=== PATIENT | male | born 1970 | race Caucasian/White ===

== ENCOUNTER → 2016-07-30 | Outpatient (CLI) | payer BC ==
[~2016-07-30] MED LIST: CALC500C3 PO; CARV3.122 PO; GADAVIST IV PRN; HYDR25TA4 PO; LEVO75TA5 PO; LISI-794 PO; OXYC1TAB3 PO; OXYSR/20 PO; POLY335019 PO; ZANTAC PO
--- NOTE | 2016-07-30 08:54 | DIAGNOSTIC IMAGING REPORT ---
MRI OF THE BRAIN WITHOUT AND WITH IV CONTRAST CLINICAL HISTORY: Facial droop COMPARISON STUDY: 01/05/2014 TECHNIQUE: MRI of the brain was performed from the vertex to the skull base utilizing various T1 and T2 weighted sequences. Following the IV administration of 13.5 mL of Gadavist contrast, additional enhanced images were obtained. The patient was imaged under 0.7 Aubree open MRI scanner. FINDINGS: Sagittal T1, axial diffusion, proton density and T2 weighted axial, coronal FLAIR, and pre and post axial T1-weighted images were acquired. These were supplemented with post gadolinium coronal T1 weighted images. There is a focus of decreased T1 signal within the inferior aspect of the pituitary on the sagittal T1 weighted images. No corresponding lesion is visualized in the post gadolinium coronal T1 weighted sequence. There is no abnormality in the prior study this location. This may be artifactual. There is ossification of the falx. There is equivocal 7 mm pineal cyst. This remains unchanged in appearance. Axial diffusion-weighted images reveal no evidence of acute or subacute infarction. There is no evidence of ventricular dilatation. Proton density T2-weighted and FLAIR images reveal no significant intraparenchymal signal abnormalities. There are no abnormal flow voids. There is no evidence of pathologic enhancement. IMPRESSION: 1. No evidence of acute or subacute infarction 2. Equivocal 7 mm pineal cyst. No change from the preceding study 3. Focus of decreased T1 signal within the inferior aspect the pituitary gland visualized on the sagittal T1-weighted images. This is likely artifactual. Electronically signed by: Rolando Joseph M.D. 07/30/2016 8:52 AM
== END | disposition home or self-care (01) ==
LOC: C.OPENMRI 07:50
PROVIDERS: ATTEND Family Medicine
DX: R29.810 Facial weakness (principal); G93.0 Cerebral cysts

== ENCOUNTER → 2016-08-01 | Outpatient (CLI) | payer BC ==
[~2016-08-01] MED LIST changes: -GADAVIST IV PRN
[2016-08-01 17:47] LABS: LYME DISEASE AB IGG NEG (NEG); LYME DISEASE AB IGM POS (NEG)
[2016-08-05 11:17] LABS: 18KDIGG BAND NONREACTIVE (NONREACTIVE); 23KDIGG BAND NONREACTIVE (NONREACTIVE); 23KDIGM BAND REACTIVE (NONREACTIVE); 28KDIGG BAND NONREACTIVE (NONREACTIVE); 30KDIGG BAND NONREACTIVE (NONREACTIVE); 39KDIGG BAND NONREACTIVE (NONREACTIVE); 39KDIGM BAND NONREACTIVE (NONREACTIVE); 41KDIGG BAND NONREACTIVE (NONREACTIVE); 41KDIGM BAND NONREACTIVE (NONREACTIVE); 45KDIGG BAND NONREACTIVE (NONREACTIVE); 58KDIGG BAND REACTIVE (NONREACTIVE); 66KDIGG BAND NONREACTIVE (NONREACTIVE); 93KDIGG BAND NONREACTIVE (NONREACTIVE)
== END | disposition home or self-care (01) ==
LOC: C.LAB1850 15:16
PROVIDERS: ATTEND Family Medicine
DX: A69.20 Lyme disease, unspecified (principal)

== ENCOUNTER → 2016-09-09 | Outpatient (CLI) | payer BC ==
--- NOTE | 2016-09-09 15:36 | DIAGNOSTIC IMAGING REPORT ---
CHEST 2 VIEWS ROUTINE HISTORY: COUGH, FEVER COMPARISON: Chest 04/09/2016. FINDINGS: The lungs are clear. Cardiac silhouette is normal in size. No pleural effusions. No pneumothorax. IMPRESSION: No acute process. Electronically signed by: Brandon Cruz M.D. 09/09/2016 3:35 PM Dictated Date/Time: 09/09/2016 3:33 PM
== END | disposition home or self-care (01) ==
LOC: C.RADBC 14:57
PROVIDERS: ATTEND Family Medicine
DX: R05 Cough (principal); R50.9 Fever, unspecified

== ENCOUNTER → 2016-10-10 | Outpatient (CLI) | payer BC ==
[~2016-10-10] VITALS: Ht 177.8 cm; Wt 134.1 kg
[2016-10-10 14:28] VITALS: BP_SYST 141; BP_SYST 147; BP_DIAS 101; BP_DIAS 88; PULSE 125; PULSE 128; Ht 177.8 cm; Wt 134.1 kg
== END | disposition home or self-care (01) ==
LOC: C.NEUR 12:41
PROVIDERS: ATTEND Internal Medicine Pulmonary Disease
DX: G47.30 Sleep apnea, unspecified (principal)

== ENCOUNTER → 2017-05-11 | Outpatient (CLI) | payer BC ==
[~2017-05-11] MED LIST changes: -OXYC1TAB3 PO
[2017-05-11 13:31] LABS: ESTIMATED AVERAGE GLUCOSE 128 mg/dl; HA1C FLAG Normal (Normal)
[2017-05-11 15:57] LABS: ALT/SGPT 110 U/L (12-78); BLOOD UREA NITROGEN 16 mg/dl (7-18); BUN/CREATININE RATIO 13.8 (10-20); CALCIUM 8.9 mg/dl (8.5-10.1); CARBON DIOXIDE 30 mmol/L (21-32); CHLORIDE 104 mmol/L (98-107); CHOLESTEROL 174 mg/dl (0-200); CREATININE 1.14 mg/dl (0.60-1.40); GLUCOSE 115 mg/dl (70-99); POTASSIUM 3.7 mmol/L (3.5-5.1); SODIUM 141 mmol/L (136-145)
[2017-05-11 16:09] LABS: ALKALINE PHOSPHATASE 92 U/L (45-117); AST/SGOT 34 U/L (15-37); CHOLESTEROL/HDL RATIO 6.2; HDL CHOLESTEROL 28 mg/dl; LDL CHOLESTEROL CALCULATED 114 mg/dl; TRIGLYCERIDES 160 mg/dl (0-150); VERY LOW DENSITY LIPOPROT CALC 32 mg/dl
== END | disposition home or self-care (01) ==
LOC: C.LABPBG 09:07
PROVIDERS: ATTEND Family Medicine
DX: I10 Essential (primary) hypertension (principal); E78.5 Hyperlipidemia, unspecified; E03.9 Hypothyroidism, unspecified; R73.9 Hyperglycemia, unspecified

== ENCOUNTER → 2017-10-09 | Outpatient (CLI) | payer OTHER ==
[~2017-10-09] VITALS: Ht 177.8 cm; Wt 319.3 kg
[2017-10-09 13:38] VITALS: BP 155/101; PULSE 99; Ht 177.8 cm; Wt 319.3 kg
== END | disposition home or self-care (01) ==
LOC: C.NEUR 12:37
PROVIDERS: ATTEND Internal Medicine Pulmonary Disease
DX: G47.34 Idiopathic sleep related nonobstructive alveolar hypoventilation (principal); E66.9 Obesity, unspecified; G47.00 Insomnia, unspecified

== ENCOUNTER → 2017-10-26 | Outpatient (CLI) | payer OTHER ==
[2017-10-26 13:12] LABS: HEMATOCRIT 44.8 % (42-52); HEMOGLOBIN 15.8 g/dL (14.0-18.0); MEAN CELL VOLUME 81.5 fL (80-100); MEAN CORPUSCULAR HEMOGLOBIN 28.7 pg (25-34); MEAN CORPUSCULAR HGB CONC 35.3 g/dl (32-36); MEAN PLATELET VOLUME 10.4 fL (7.4-10.4); PLATELET COUNT 204 K/uL (130-400); RED CELL DISTRIBUTION WIDTH SD 38.6 fL (36.4-46.3); WHITE BLOOD COUNT 8.56 K/uL (4.8-10.8)
[2017-10-26 14:12] LABS: HEMOGLOBIN A1C 9.3 % (4.5-5.6)
[2017-10-26 14:26] LABS: ALBUMIN 4.1 gm/dl (3.4-5.0); ALT/SGPT 205 U/L (12-78); AST/SGOT 85 U/L (15-37); BLOOD UREA NITROGEN 11 mg/dl (7-18); CALCIUM 9.2 mg/dl (8.5-10.1); CARBON DIOXIDE 27 mmol/L (21-32); CHOLESTEROL 199 mg/dl (0-200); CREATININE 1.07 mg/dl (0.60-1.40); GLUCOSE 281 mg/dl (70-99); POTASSIUM 3.5 mmol/L (3.5-5.1); SODIUM 137 mmol/L (136-145)
[2017-10-26 14:37] LABS: ALKALINE PHOSPHATASE 134 U/L (45-117); LDL CHOLESTEROL CALCULATED 136 mg/dl; TOTAL PROTEIN 7.7 gm/dl (6.4-8.2)
== END | disposition home or self-care (01) ==
LOC: C.LABPBG 09:27
PROVIDERS: ATTEND Family Medicine
DX: I10 Essential (primary) hypertension (principal); R73.03 Prediabetes; M54.5 Low back pain; E78.5 Hyperlipidemia, unspecified; E03.9 Hypothyroidism, unspecified

== ENCOUNTER 2021-02-14 16:57 | Observation (INO) ==
[2021-02-14] MEDS ORDERED: ONDANSETRON INJ 2 MG/ML 2 ML VIAL IV STA (17:41)
[2021-02-14] MEDS ORDERED: SODIUM CHLORIDE 0.9% 500 ML IV STA (17:41)
[2021-02-14] MEDS ORDERED: FAMOTIDINE 20 MG in SYRINGE 3 ML IV STA (17:42)
[2021-02-14] MEDS ORDERED: FAMOTIDINE 20MG/5ML IV PUSH IV ONE (17:46)
--- NOTE | 2021-02-14 17:51 | Emergency Department Note ---
Impression & Plan COVID-19, Gastroenteritis due to COVID-19 virus, Acute renal insufficiency ED Provider Note NAME: ROBIN ARCHER II AGE: 50 SEX: M ARRIVES VIA: Walk-In INFORMANT: Patient, ED PROVIDER(S): Aravind Martin MD CHIEF COMPLAINT: n/v/d PLAN: Disposition: Admit MEDICAL DECISION MAKING: The patient is a pleasant 50-year-old gentleman with a past medical history of pretension, hyperlipidemia, diabetes, hypothyroidism who presents emerge department accompanied by his for 2 days of worsening nausea vomiting and persistent diarrhea with frequent bowel movements that he feels are too numerous to count. The stool is watery brown and denies black or bloody stool. He reports he recently returned from [place] on Thursday and preceding his symptoms he ate half a owen that he had brought back. His and daughter also ate the mangoes but slightly less than he did but they have no symptoms. He denies fevers, cough or congestion, chest pain or shortness of breath. He reports he has been unable to keep any food or drink down since yesterday. He reports he did receive his COVID-19 vaccination two dose Moderna series in September and denies any known COVID-19 exposures. On arrival the patient is uncomfortable no acute distress, afebrile heart rate in the 110s vital signs otherwise stable. He appears clinically dry. He has generalized abdominal discomfort with mild tenderness in the left lower quadrant without guarding or rebound. EKG without overt acute ischemia. Chest x-ray without acute cardiopulmonary process. WBC 11.3K, nonspecific. H/H 18.3/52.5 likely with a component of hemoconcentration given the patient's clinically dry appearance and increased values from several months ago. Platelets within normal limits. Chemistry without significant acidosis but with bicarb 19 and creatinine 1.9 with BUN/creatinine> 20 consistent with dehydration and likely prerenal etiology in the setting of his nausea, vomiting and diarrhea. LFTs without significant abnormality. Troponin negative/undetectable. Lipase is not elevated. The patient's COVID-19 PCR did result as positive. Given the patient's renal failu re and abdominal tenderness he was ordered for a CT scan of the abdomen pelvis was negative for acute findings. On reevaluation patient was feeling somewhat improved however given his acute renal insufficiency in the setting of his ongoing GI symptoms/gastroenteritis secondary to COVID-19 he agrees with plan for admission. Dr. Marroquin, [facility] hospitalist, to evaluate the patient for admission. This patient was managed with the assistance of resident, Dr. Comer. I discussed the case with the resident, examined the patient, and confirm the findings and plan as documented in this note. Triage Nursing notes reviewed and agree them. Prior medical records reviewed Vital Signs: reviewed and remarkable for tachycardia. Differential diagnosis: Gastroenteritis, food borne illness, infections, appendicitis, diverticulitis, inflammatory bowel disease, obstruction, GI bleed, biliary pathology, volvulus, as well as other pathologies. ER treatment provided: See below. Diagnostics interpreted by me: ECG: Normal sinus rhythm, 97 bpm, no ectopy, no overt ST elevation or depression, QTC 424, QRS 88. Cardiac Monitoring: An order for continuous cardiac monitoring was placed and demonstrated Normal sinus rhythm, 97 bpm, no ectopy. Laboratory studies: See below Imaging studies: See below Consultation(s): Dr. Marroquin, [facility] hospitalist, to evaluate the patient for admission. HPI: The patient is a pleasant 50-year-old gentleman with a past medical history of pretension, hyperlipidemia, diabetes, hypothyroidism who presents emerge department accompanied by his for 2 days of worsening nausea vomiting and persistent diarrhea with frequent bowel movements that he feels are too numerous to count. The stool is watery brown and denies black or bloody stool. He reports he recently returned from [place] on Thursday and preceding his symptoms he ate half a owen that he had brought back. His and daughter also ate the mangoes but slightly less than he did but they have no symptoms. He denies fevers, cough or congestion, chest pain or shortness of breath. He reports he has been unable to keep any food or drink down since yesterday. He reports he did receive his COVID-19 vaccination two dose Moderna series in September and denies any known COVID-19 exposures. ROS: See above HPI for pertinent positives & negatives. A total of 10 systems reviewed and were otherwise negative. PAST MEDICAL HISTORY:See Below PAST SURGICAL HISTORY:See Below FAMILY HISTORY:See Below SOCIAL HISTORY:See Below HOME MEDICATIONS:See Below ALLERGIES:See Below VITALS:See Below PHYSICAL EXAMINATION: GENERAL: Awake, alert, uncomfortable-appearing, in no distress HENT: Normocephalic, atraumatic. Oropharynx with dry mucous membranes and otherwise unremarkable. EYES: Normal conjunctiva. Sclera non-icteric. NECK: Supple. No nuchal rigidity. FROM. No JVD. RESPIRATORY: Clear to auscultation. CARDIAC: Tachycardic rate, normal rhythm. Extremities warm and well perfused. Pulses equal. ABDOMEN: Soft, non-distended. Generalized abdominal discomfort with mild tenderness in the left lower quadrant without guarding or rebound. No rebound or guarding. No masses. RECTAL: Deferred. MUSCULOSKELETAL: Chest examination reveals no tenderness. The back is symmetrical on inspection without obvious abnormality. There is no CVA tenderness to palpation. No joint edema. LOWER EXTREMITIES: Calves are equal size bilaterally and non-tender. No edema. No discoloration. NEURO: Normal sensorium. No sensory or motor deficits noted. SKIN: No rash or jaundice noted. Aravind Martin MD Past Med/Surg History Medical History Disc degeneration, lumbar Dyslipidemia Esophageal reflux Facet syndrome, lumbar Fatty infiltration of liver Gout Hypertension Hypothyroidism Internal hemorrhoids Morbid obesity with BMI of 40.0-44.9, adult Obstructive sleep apnea cpap 5-20cm H20 Post laminectomy syndrome Prostate hyperplasia with urinary obstruction Restless legs syndrome Sleep related hypoxia T2DM (type 2 diabetes mellitus) Unequal leg length (acquired) Surgical History H/O colonoscopy (06/01/15) hemorrhoids, repeat 5yrs H/O vasectomy History of ankle surgery right History of arthroscopy of left knee History of arthroscopy of right knee History of wisdom tooth extraction S/P lumbar spinal arthrodesis (03/2014) L4-S1 fusion Status post appendectomy Status post left foot surgery hardware in place Family History Grandfather (Paternal) Bladder cancer Mother Arthritis Grandfather (Maternal) Cardiac disorder Grandmother (Paternal) Lung cancer Father Colorectal cancer, Onset Age: 49 Other No family history of adverse response to anesthesia Denies family history of Ovarian cancer Prostate cancer Myocardial infarction Breast cancer Social History Smoking Status: Never smoker Second Hand Exposure: No; Hx Alcohol Use: No Hx Substance Use: No Preferred Language: British Communication Ability: Effective Visual Impairment: No Limitations Hearing Ability: Normal Interventional Technologist Required: No Beliefs That Will Affect Care: None marital status: Current Living Situation: Spouse and Family Current Living Situation Comment: Lives with and 2 daughters current occupational status: employed 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 Other Information That Helps Us Care for You: No Feels Safe at Home: Yes Safety Concerns: Feels Safe At This Time Childhood Exposure to Second-Hand Smoke: No Diet Comment: regular caffeine: Yes (coffee) during the past year weight has: decreased > 10 lbs Dental Care, Regularly: Yes Physical Activity Frequency: Does not Exercise Seatbelt Use: always Sunscreen Use: No Assistive Devices: Glasses Allergies Allergies Allergy/AdvReac Type Severity Reaction Status Date / Time LINUS Inhibitors Allergy Unknown Unknown Verified 02/14/21 21:17 Penicillins Allergy Unknown UNKNOWN Verified 02/14/21 21:17 Home Meds Home Medications Medication Instructions Recorded Confirmed empagliflozin 25 mg tablet 25 mg PO QAM 12/11/20 02/14/21 (Jardiance) meloxicam 15 mg tablet 15 mg PO QAM PRN 02/14/21 02/14/21 Previous Rx's Medication Instructions Recorded levothyroxine 75 mcg tablet 75 mcg PO QAM #90 tab 10/10/20 amlodipine 5 mg tablet 5 mg PO QAM #90 tab 11/06/20 carvedilol 25 mg tablet 25 mg PO BID #180 tab 12/05/20 potassium chloride 20 mEq 20 meq PO QAM #180 tab 12/05/20 tablet,extended release doxepin 50 mg capsule 150 mg PO HS #90 cap 01/01/21 hydrochlorothiazide 25 mg tablet 25 mg PO QAM #90 tab 01/01/21 lisinopril 40 mg tablet 40 mg PO QAM #90 tab 01/01/21 metformin 1,000 mg tablet 1,000 mg PO BID #180 tab 01/01/21 atorvastatin 20 mg tablet 20 mg PO QAM #90 tab 02/01/21 Results & Data (ED) Vital Signs Vital Signs - 24 hr 02/14/21 17:13 02/14/21 18:26 02/14/21 19:54 Temperature 36.6 C Temperature Source Temporal Artery Scan Pulse Rate 116 H 95 H 102 H Pulse Rate from SpO2 Sensor 96 H Respiratory Rate 18 21 17 Respiratory Effort / Characteristics Non-Labored Spontaneous Respiratory Depth Normal Blood Pressure 108/69 126/80 111/60 Blood Pressure Mean 82 95 77 Blood Pressure Position Sitting Pulse Oximetry 97 96 96 Oxygen Delivery Method Room Air Sepsis Recent Fever Within 48 Hours No Sepsis New/Unexplained Change in Mental Status No Sepsis Action Taken by Nursing No Action Required 02/14/21 20:00 02/14/21 20:31 02/14/21 21:01 Temperature Temperature Source Pulse Rate 101 H 99 H 95 H Pulse Rate from SpO2 Sensor Respiratory Rate 16 14 18 Respiratory Effort / Characteristics Respiratory Depth Blood Pressure 104/62 116/62 127/68 Blood Pressure Mean 76 80 87 Blood Pressure Position Pulse Oximetry 94 100 Oxygen Delivery Method Sepsis Recent Fever Within 48 Hours Sepsis New/Unexplained Change in Mental Status Sepsis Action Taken by Nursing 02/14/21 22:20 02/14/21 22:30 Temperature Temperature Source Pulse Rate 109 H 108 H Pulse Rate from SpO2 Sensor Respiratory Rate 20 Respiratory Effort / Characteristics Respiratory Depth Blood Pressure 100/74 126/81 Blood Pressure Mean 82 96 Blood Pressure Position Pulse Oximetry 96 94 Oxygen Delivery Method Room Air Room Air Sepsis Recent Fever Within 48 Hours Sepsis New/Unexplained Change in Mental Status Sepsis Action Taken by Nursing Laboratory Data Attestation: I reviewed the patient's lab results. Result diagrams: 02/14/21 18:10 02/14/21 18:10 Lab Results 02/14/21 02/14/21 02/14/21 Range/Units 18:10 18:10 18:10 WBC 11.39 H (4.8-10.8) K/uL RBC 6.43 H (4.7-6.1) M/uL Hgb 18.3 H (14.0-18.0) g/dL Hct 52.5 H (42-52) % MCV 81.6 (80-100) fL MCH 28.5 (25-34) pg MCHC 34.9 (32-36) g/dL RDW Std Deviation 39.2 (36.4-46.3) fL RDW Coeff of [place] 13.2 (11.5-14.5) % Plt Count 237 (130-400) K/uL MPV 9.9 (7.4-10.4) fL Immature Gran % (Auto) 0.4 % Neut % (Auto) 61.7 % Lymph % (Auto) 18.3 % [place] % (Auto) 16.6 % Eos % (Auto) 2.9 % Baso % (Auto) 0.1 % Neut # (Auto) 7.04 H (1.4-6.5) K/uL Lymph # (Auto) 2.08 (1.2-3.4) K/uL [place] # (Auto) 1.89 H (0.11-0.59) K/uL Eos # (Auto) 0.33 (0-0.5) K/uL Baso # (Auto) 0.01 (0-0.2) K/uL Immature Gran # (Auto) 0.04 H (0.00-0.02) K/uL Sodium 137 (136-145) mmol/L Potassium 3.9 (3.5-5.1) mmol/L Chloride 111 H (98-107) mmol/L Carbon Dioxide 19 L (21-32) mmol/L Anion Gap 7.0 (3-11) BUN 40 H (7-18) mg/dl Creatinine 1.94 H (0.6-1.4) mg/dl Est Cr Clr Drug Dosing 62.3 ml/min Est GFR ( Amer) 46.1 ml/min Est GFR (Non-Af Amer) 39.8 ml/min BUN/Creatinine Ratio 20.5 H (10-20) Glucose 123 H (70-99) mg/dl Lactate 1.2 (0.4-2.0) mmol/L Calcium 9.4 (8.5-10.1) mg/dl Total Bilirubin 0.8 (0.2-1) mg/dl AST 10 L (15-37) U/L ALT 34 (12-78) U/L Alkaline Phosphatase 83 (45-117) U/L Troponin I < 0.015 (0-0.045) ng/ml Total Protein 7.9 (6.4-8.2) gm/dl Albumin 4.2 (3.4-5.0) gm/dl Globulin 3.7 (2.5-4.0) gm/dl Albumin/Globulin Ratio 1.1 (0.9-2) Lipase 146 (73-393) U/L COVID-19 Eval Order SARS-CoV-2 (PCR) (Negative) 02/14/21 02/14/21 Range/Units 18:10 18:10 WBC (4.8-10.8) K/uL RBC (4.7-6.1) M/uL Hgb (14.0-18.0) g/dL Hct (42-52) % MCV (80-100) fL MCH (25-34) pg MCHC (32-36) g/dL RDW Std Deviation (36.4-46.3) fL RDW Coeff of [place]ian[place] (11.5-14.5) % Plt Count (130-400) K/uL MPV (7.4-10.4) fL Immature Gran % (Auto) % Neut % (Auto) % Lymph % (Auto) % [place] % (Auto) % Eos % (Auto) % Baso % (Auto) % Neut # (Auto) (1.4-6.5) K/uL Lymph # (Auto) (1.2-3.4) K/uL [place] # (Auto) (0.11-0.59) K/uL Eos # (Auto) (0-0.5) K/uL Baso # (Auto) (0-0.2) K/uL Immature Gran # (Auto) (0.00-0.02) K/uL Sodium (136-145) mmol/L Potassium (3.5-5.1) mmol/L Chloride (98-107) mmol/L Carbon Dioxide (21-32) mmol/L Anion Gap (3-11) BUN (7-18) mg/dl Creatinine (0.6-1.4) mg/dl Est Cr Clr Drug Dosing ml/min Est GFR ( Amer) ml/min Est GFR (Non-Af Amer) ml/min BUN/Creatinine Ratio (10-20) Glucose (70-99) mg/dl Lactate (0.4-2.0) mmol/L Calcium (8.5-10.1) mg/dl Total Bilirubin (0.2-1) mg/dl AST (15-37) U/L ALT (12-78) U/L Alkaline Phosphatase (45-117) U/L Troponin I (0-0.045) ng/ml Total Protein (6.4-8.2) gm/dl Albumin (3.4-5.0) gm/dl Globulin (2.5-4.0) gm/dl Albumin/Globulin Ratio (0.9-2) Lipase (73-393) U/L COVID-19 Eval Order Covid19 at [facility] SARS-CoV-2 (PCR) POSITIVE A* (Negative) Administered Medications Lactated Ringer's (Lr) 1,000 mls @ 125 mls/hr IV .Q8H OWEN Stop: 02/15/21 14:29 Last Infusion: 02/14/21 23:24 Dose: 125 mls/hr Documented by: [id number] Admin: 02/14/21 23:20 Dose: 125 mls/hr Documented by: [id number] Discontinued Medications Famotidine (Famotidine 20mg/5ml Iv Push) Confirm Administered Dose 20 mg IV .STK-MED ONE Stop: 02/14/21 17:47 Last Admin: 02/14/21 18:07 Dose: 20 mg Documented by: [id number] Sodium Chloride (Nss) 500 mls @ 999 mls/hr IV .Q31M STA Stop: 02/14/21 18:11 Last Infusion: 02/14/21 18:47 Dose: 0 mls/hr Documented by: [id number] Admin: 02/14/21 18:07 Dose: 999 mls/hr Documented by: [id number] Famotidine 20 mg/ Syringe 5 mls @ 2.5 mls/min IV NOW STA Stop: 02/14/21 17:43 Last Admin: 02/14/21 18:34 Dose: Not Given Documented by: [id number] Sodium Chloride (Nss) 500 mls @ 999 mls/hr IV .Q31M ONE Stop: 02/14/21 19:28 Last Infusion: 02/14/21 20:32 Dose: 0 mls/hr Documented by: [id number] Admin: 02/14/21 19:56 Dose: 999 mls/hr Documented by: [id number] Ondansetron HCl (Ondansetron Inj 2 Mg/Ml 2 Ml Vial) 4 mg IV NOW STA Stop: 02/14/21 17:42 Last Admin: 02/14/21 18:07 Dose: 4 mg Documented by: [id number] Imaging Data Radiologist's Impression: KUB X-Ray 02/14/21 17:41 KUB CLINICAL HISTORY: Generalized abdominal pain. Nausea and vomiting. FINDINGS: 4 AP supine abdominal radiographs are correlated with abdominal CT dated 11/28/2015. There is a nonobstructed abdominal bowel gas pattern. No evidence of intraperitoneal free air is seen on these supine images. The liver is enlarged. A 10 mm calcification projecting over the left midabdomen may represent a nonobstructing kidney stone. The bony structures appear intact. Fusion hardware is noted in the lumbosacral spine. IMPRESSION: Nonobstructed bowel gas pattern. Electronically signed by: Niraj Ross M.D. 02/14/2021 7:36 PM Abdomen/Pelvis CT 02/14/21 18:58 CT SCAN OF THE ABDOMEN AND PELVIS WITHOUT IV CONTRAST CLINICAL HISTORY: Nausea and vomiting. Diarrhea. Renal insufficiency. COMPARISON STUDY: Abdominal CT dated 11/28/2015. TECHNIQUE: CT scan of the abdomen and pelvis is performed from the lung bases to the proximal femora. Images are reviewed in the axial, sagittal, and coronal planes. IV contrast was not administered for this examination due to poor renal function. A dose lowering technique was utilized adhering to the principles of ALARA. CT DOSE: 1139.59 mGycm FINDINGS: Lung bases: The heart is normal in size and without pericardial effusion. There are scattered calcified granulomas. The lung bases are otherwise clear. There is a small hiatal hernia. Liver: The unenhanced liver is enlarged, measuring 25.5 cm in length. The liver demonstrates diffusely diminished attenuation consistent with hepatic steatosis. There is no intrahepatic biliary ductal dilatation. Gallbladder: There are small calcified gallstones with no CT evidence of acute cholecystitis. Spleen: Normal in size and attenuation. Pancreas: Unremarkable. Adrenal glands: Unremarkable. Kidneys: The unenhanced kidneys are normal in size and without hydronephrosis. There are no renal calculi identified. There is no evidence of contour deforming renal mass lesion. Abdominal vasculature: The abdominal aorta is normal in course and caliber. Bowel: There is mild colonic diverticulosis without CT evidence of acute diverticulitis. No bowel obstruction is seen. The appendix is not visualized. Peritoneum: There is no intraperitoneal free air or abdominal ascites. There is a small fat-containing umbilical hernia. Lymphadenopathy: There are prominent nonspecific upper abdominal and mesenteric lymph nodes. These are not pathologically enlarged by size criteria. Pelvic viscera: The bladder, prostate, and seminal vesicles are normal as visualized. Skeletal structures: No lytic or blastic lesions are seen. There is postoperative change of L4-S1 spinal fusion. IMPRESSION: 1. There are no acute infectious or inflammatory findings in the abdomen or pelvis. 2. Cholelithiasis. 3. Hepatomegaly and hepatic steatosis. 4. Additional findings as above. ACT 112: Negative or not required by law. Electronically signed by: Niraj Ross M.D. 02/14/2021 8:42 PM Chest X-Ray 02/14/21 20:15 SINGLE VIEW CHEST CLINICAL HISTORY: Generalized abdominal pain. Vomiting. Covid. FINDINGS: An AP, portable, upright chest radiograph is compared to study dated 04/09/2016 and correlated with chest CT dated 04/24/2009. The heart is top normal for projection. The lungs and pleural spaces are clear. No pneumothorax is seen. The bony thorax is grossly intact. IMPRESSION: No active disease in the chest. ACT 112: Negative or not required by law. Electronically signed by: Niraj Ross M.D. 02/14/2021 8:44 PM Discharge Plan Visit Data Chief Complaint: Flu Like Symptoms Stated Complaint: VOMITING, DIARRHEA, DEHYDRATION ED Provider: Aravind Martin ED Midlevel Provider: Rena Comer Discharge Problem: COVID-19, Gastroenteritis due to COVID-19 virus, Acute renal insufficiency Discharge Instructions Interventions: ED Discharge Assessment Last Done: 02/14/21 22:59 Resident Activity Tracking Resident Involvement: Resident Care Provided Care Provided: Adult ED
[2021-02-14 18:24] LABS: Basophils # (auto) 0.01 K/uL (0-0.2); Basophils % (auto) 0.1 %; Eosinophils # (auto) 0.33 K/uL (0-0.5); Eosinophils % (auto) 2.9 %; Hematocrit (blood only) 52.5 % (42-52); Hemoglobin 18.3 g/dL (14.0-18.0); Immature Granulocytes # (auto) 0.04 K/uL (0.00-0.02); Immature Granulocytes % (auto) 0.4 %; Lymphocytes # (auto) 2.08 K/uL (1.2-3.4); Lymphocytes % (auto) 18.3 %; Mean Corpuscular Hemoglobin 28.5 pg (25-34); Mean Corpuscular Hgb Conc 34.9 g/dL (32-36); Mean Corpuscular Volume 81.6 fL (80-100); Mean Platelet Volume 9.9 fL (7.4-10.4); Monocytes # (auto) 1.89 K/uL (0.11-0.59); Monocytes % (auto) 16.6 %; Neutrophils # (auto) 7.04 K/uL (1.4-6.5); Neutrophils % (auto) 61.7 %; Platelet Count 237 K/uL (130-400); RDW Coefficient of Variation 13.2 % (11.5-14.5); RDW Standard Deviation 39.2 fL (36.4-46.3); Red Blood Count 6.43 M/uL (4.7-6.1); White Blood Count 11.39 K/uL (4.8-10.8)
[2021-02-14 18:44] LABS: Alanine Aminotransferase 34 U/L (12-78); Albumin Level 4.2 gm/dl (3.4-5.0); Aspartate Aminotransferase 10 U/L (15-37); BUN Creatinine Ratio 20.5 (10-20); Blood Urea Nitrogen 40 mg/dl (7-18); Calcium 9.4 mg/dl (8.5-10.1); Carbon Dioxide 19 mmol/L (21-32); Chloride 111 mmol/L (98-107); Creatinine Clr Calc Pharmacy 62.3 ml/min; Est GFR (African American) 46.1 ml/min; Est GFR (Non-African American) 39.8 ml/min; Glucose 123 mg/dl (70-99); Lipase 146 U/L (73-393); Potassium 3.9 mmol/L (3.5-5.1); Sodium 137 mmol/L (136-145)
[2021-02-14 18:48] LABS: Albumin Globulin Ratio 1.1 (0.9-2); Alkaline Phosphatase 83 U/L (45-117); Bilirubin,Total 0.8 mg/dl (0.2-1); Globulin 3.7 gm/dl (2.5-4.0); Total Protein 7.9 gm/dl (6.4-8.2); Troponin I < 0.015 ng/ml (0-0.045)
[2021-02-14] MEDS ORDERED: SODIUM CHLORIDE 0.9% 500 ML IV ONE (18:58)
--- NOTE | 2021-02-14 19:38 | XRay Report ---
KUB CLINICAL HISTORY: Generalized abdominal pain. Nausea and vomiting. FINDINGS: 4 AP supine abdominal radiographs are correlated with abdominal CT dated 11/28/2015. There is a nonobstructed abdominal bowel gas pattern. No evidence of intraperitoneal free air is seen on thes e supine images. The liver is enlarged. A 10 mm calcification projecting over the left midabdomen may represent a nonobstructing kidney stone. The bony structures appear intact. Fusion hardware is noted in the lumbosacral spine. IMPRESSION: Nonobstructed bowel gas pattern. Electronically signed by: Niraj Ross M.D. 02/14/2021 7:36 PM
--- NOTE | 2021-02-14 20:44 | CT Scan Report ---
CT SCAN OF THE ABDOMEN AND PELVIS WITHOUT IV CONTRAST CLINICAL HISTORY: Nausea and vomiting. Diarrhea. Renal insufficiency. COMPARISON STUDY: Abdominal CT dated 11/28/2015. TECHNIQUE: CT scan of the abdomen and pelvis is performed from the lung bases to the proximal femora. Images are reviewed in the axial, sagittal, and coronal planes. IV contrast was not administered for this examination due to poor renal function. A dose lowering technique was utilized adhering to the principles of ALARA. CT DOSE: 1139.59 mGycm FINDINGS: Lung bases: The heart is normal in size and without pericardial effusion. There are scattered calcifi ed granulomas. The lung bases are otherwise clear. There is a small hiatal hernia. Liver: The unenhanced liver is enlarged, measuring 25.5 cm in length. The liver demonstrates diffusel y diminished attenuation consistent with hepatic steatosis. There is no intrahepatic biliary ductal d ilatation. Gallbladder: There are small calcified gallstones with no CT evidence of acute cholecystitis. Spleen: Normal in size and attenuation. Pancreas: Unremarkable. Adrenal glands: Unremarkable. Kidneys: The unenhanced kidneys are normal in size and without hydronephrosis. There are no renal anurag culi identified. There is no evidence of contour deforming renal mass lesion. Abdominal vasculature: The abdominal aorta is normal in course and caliber. Bowel: There is mild colonic diverticulosis without CT evidence of acute diverticulitis. No bowel obs truction is seen. The appendix is not visualized. Peritoneum: There is no intraperitoneal free air or abdominal ascites. There is a small fat-containin g umbilical hernia. Lymphadenopathy: There are prominent nonspecific upper abdominal and mesenteric lymph nodes. These ar e not pathologically enlarged by size criteria. Pelvic viscera: The bladder, prostate, and seminal vesicles are normal as visualized. Skeletal structures: No lytic or blastic lesions are seen. There is postoperative change of L4-S1 spi nal fusion. IMPRESSION: 1. There are no acute infectious or inflammatory findings in the abdomen or pelvis. 2. Cholelithiasis. 3. Hepatomegaly and hepatic steatosis. 4. Additional findings as above. ACT 112: Negative or not required by law. Electronically signed by: Niraj Ross M.D. 02/14/2021 8:42 PM
--- NOTE | 2021-02-14 20:45 | XRay Report ---
SINGLE VIEW CHEST CLINICAL HISTORY: Generalized abdominal pain. Vomiting. Covid. FINDINGS: An AP, portable, upright chest radiograph is compared to study dated 04/09/2016 and correlat ed with chest CT dated 04/24/2009. The heart is top normal for projection. The lungs and pleural space s are clear. No pneumothorax is seen. The bony thorax is grossly intact. IMPRESSION: No active disease in the chest. ACT 112: Negative or not required by law. Electronically signed by: Niraj Ross M.D. 02/14/2021 8:44 PM
--- NOTE | 2021-02-14 22:23 | History & Physical Report ---
Date of Service February 14, 2021 Assessment & Plan (1) Acute renal insufficiency: Plan: Arturo is a 50 year old male with a notable history of HTN, obstructive sleep apnea, restless leg syndrome, BPH, hypothyroidism, hypertension, fatty liver, type 2 diabetes who presented to [facility] for evaluation of GI distress over the last several days, likely secondary to gastro/enterocolitis. Patient is COVID-19+. Gastro-/Entero-colitis * 2 days of profuse, watery diarrhea, nausea, loss of appetite, and anorexia * At this time, suspect secondary to food-borne illness -- began several hours after he ate a owen he brought back from [place]; although he reports eating raw seafood there too --> no recent ABX use --> CT-A/P without significant findings * Possibility that COVID-19 detection may also be contributing, too * S/P 1L NSS in ED * Will transition to LR @ 125cc/hr for total of 2L for less chloride burden / in setting of NAGMA * Zofran prn * Can consider addition of cholestyramine prn * Stool studies, cultures, WBCs ordered * Clear liquid diet, advance as tolerated. If poorly tolerated --> NPO * Continue home KCl -- replete lytes p.r.n. COVID-19 Positive * Patient is fully vaccinated. PCR testing upon arrival was found to be positive * No respiratory symptoms / needs at present. * COVID-19 precautions ordered * DVT PPX: pLov 40 q12 MICHELLE * Admission labs significant for BUN 40 / Cr 1.94 -- function previously normal in 10/2020 * Suspect prerenal with ongoing gastroenterocolitis, evidence of volume depletion * Continue mIVF - LR @ 125cc/hr x 2L. Consider additional bags p.r.n., based on AM labs * Hold HCTZ, avoid nephrotoxins * BMP in AM HTN * Normotensive, but tachycardic while here. Suspect volume depleted. * Hold home amlodipine, HCTZ, losartan for now - resum as volume status allows * Continue Coreg T2DM * Patient on Jardiance, metformin at home - hold * A1c in 10/2020 at 13.4% -- patient said he has made big lifestyle improvements in fBSGs are now ~100-130 on above meds * Initiate SSI -- goal 100-140, CF 20, AC/HS checks * A1c ordered for AM * Consider adding basal coverage pending A1c LIANNA * Patient utilizes CPAP at home, did not bring * Order CPAP -- can use own if family brings in Dispo: [place] - COVID-19 Precautions Diet: Clears, AAT. Back to NPO if poorly tolerated / as appropriate. PPX: pLov - 40 q12h in setting of +COVID Code: FULL CODE (2) Sleep related hypoxia: (3) Obstructive sleep apnea: (4) Restless legs syndrome: (5) Prostate hyperplasia with urinary obstruction: (6) Hypothyroidism: (7) Hypertension: (8) Fatty infiltration of liver: (9) Esophageal reflux: (10) T2DM (type 2 diabetes mellitus): (11) Gastroenteritis: (12) COVID-19: History of Present Illness Primary Care Provider: Leida Liriano DO Arturo is a 50 year old male with a notable history of obstructive sleep apnea, restless leg syndrome, BPH, hypothyroidism, hypertension, fatty liver, type 2 diabetes who presented to [facility] for evaluation of GI distress over the last several days. Patient reports that beginning approximately 2 days ago, he began having profuse watery stools that were also accompanied with nausea and occasional vomiting. This began the night after he ate a owen he brought home from [place]. Because of this, he has been unable to keep food or liquids down without reemergence of the nausea. He denies any dark or discolored stools. Denies any hematemesis. He does endorse several episodes of positionally-related presyncope and one episode of actual syncope that occurred as he was getting out of bed in the middle of the night to use the commode. He did not experience any chest pain during these episodes. He denied these ever happening beforehand. In [place], he does endorse swimming in fresh water and eating raw oysters. No new rashes/joint pains. Socially- does endorse using chew-tobacco. Precontemplative. Denies alcohol, recreational drug use. 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 In the ER, patient was found to be mildly tachycardic, with normal blood pressures. He did have a very mild leukocytosis in the setting of hemoconcentration, as well as evidence of an acute kidney injury. His COVID-19 PCR test did result positive. He denies any respiratory or chest symptoms. CT of the abdomen pelvis was largely unremarkable. Chest x-ray did not reveal any acute findings. Patient was resuscitated with approximately 1 L of fluids was also given IV Pepcid. Decision was made to admit patient for ongoing GI distress in the setting of dehydration, need for further volume resuscitation. Allergies Allergy/AdvReac Type Severity Reaction Status Date / Time LINUS Inhibitors Allergy Unknown Unknown Verified 02/14/21 21:17 Penicillins Allergy Unknown UNKNOWN Verified 02/14/21 21:17 Home Medications Medication Instructions Recorded Confirmed Type levothyroxine 75 mcg tablet 75 mcg PO QAM #90 tab 10/10/20 02/14/21 Rx amlodipine 5 mg tablet 5 mg PO QAM #90 tab 11/06/20 02/14/21 Rx carvedilol 25 mg tablet 25 mg PO BID #180 tab 12/05/20 02/14/21 Rx potassium chloride 20 mEq 20 meq PO QAM #180 tab 12/05/20 02/14/21 Rx tablet,extended release empagliflozin 25 mg tablet 25 mg PO QAM 12/11/20 02/14/21 History (Jardiance) doxepin 50 mg capsule 150 mg PO HS #90 cap 01/01/21 02/14/21 Rx lisinopril 40 mg tablet 40 mg PO QAM #90 tab 01/01/21 02/14/21 Rx metformin 1,000 mg tablet 1,000 mg PO BID #180 tab 01/01/21 02/14/21 Rx meloxicam 15 mg tablet 15 mg PO QAM PRN 02/14/21 02/14/21 History benzonatate 100 mg capsule 100 mg PO BID PRN #30 cap 02/16/21 Rx (Tessalon Perlsamuel) atorvastatin 20 mg tablet 20 mg PO QAM #90 tab 02/18/21 02/18/21 Rx Past Med/Surg History Medical History Disc degeneration, lumbar Dyslipidemia Esophageal reflux Facet syndrome, lumbar Fatty infiltration of liver Gout Hypertension Hypothyroidism Internal hemorrhoids Morbid obesity with BMI of 40.0-44.9, adult Obstructive sleep apnea cpap 5-20cm H20 Post laminectomy syndrome Prostate hyperplasia with urinary obstruction Restless legs syndrome Sleep related hypoxia T2DM (type 2 diabetes mellitus) Unequal leg length (acquired) Surgical History H/O colonoscopy (06/01/15) hemorrhoids, repeat 5yrs H/O vasectomy History of ankle surgery right History of arthroscopy of left knee History of arthroscopy of right knee History of wisdom tooth extraction S/P lumbar spinal arthrodesis (03/2014) L4-S1 fusion Status post appendectomy Status post left foot surgery hardware in place Family History Grandfather (Paternal) Bladder cancer Mother Arthritis Grandfather (Maternal) Cardiac disorder Grandmother (Paternal) Lung cancer Father Colorectal cancer, Onset Age: 49 Other No family history of adverse response to anesthesia Denies family history of Ovarian cancer Prostate cancer Myocardial infarction Breast cancer Social History Smoking Status: Never smoker Second Hand Exposure: No; Hx Alcohol Use: No Hx Substance Use: Yes Last Used Substance: Unknown Last Used Substance Other:: Hx 10 years of chronic opioid use, rehab required to quit Preferred Language: Greek Communication Ability: Effective Visual Impairment: No Limitations Hearing Ability: Normal Crinkling Machine Operator Required: No Beliefs That Will Affect Care: None marital status: Current Living Situation: Spouse and Family Current Living Situation Comment: Lives with and 2 daughters current occupational status: employed 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 Feels Safe at Home: Yes Childhood Exposure to Second-Hand Smoke: No Diet Comment: regular caffeine: Yes (coffee) during the past year weight has: decreased > 10 lbs Dental Care, Regularly: Yes Physical Activity Frequency: Does not Exercise Seatbelt Use: always Sunscreen Use: No Assistive Devices: CPAP and Glasses Review of Systems Review of Systems: Constitutional: Denies fever, chills, malaise, weight change Eyes: Denies double vision, vision change, eye pain ENT: Denies ear pain, sore throat, sinus pain Cardiovascular: Denies Chest pain, chest pressure, palpitations, extremity swelling Respiratory: Denies shortness of breath, cough, sputum production, difficulty breathing Gastrointestinal: Per HPI Genitourinary: Denies urinary symptoms including dysuria Musculoskeletal: Denies weakness, muscle aches/pain, joint aches/pain Integumentary:Denies rash, lesions, bruising Neurological: Denies headache, numbness, tingling, focal weakness Physical Exam Physical Exam: General: Tired but well-appearing 50-year-old gentleman who is lying back in his hospital bed, relaxed and watching TV upon my arrival. He converses freely and is in no acute distress. HEENT: NCAT. Eyes - Sclera are white, anicteric, and without injection. PERRL. EOMs display full ROM bilaterally. Mouth -mucous membranes are dry appearing. Cardiac: Normal rate and regular rhythm; S1 and S2 present with no murmurs, rubs, or gallops. Pulmonary: Good respiratory effort with symmetric expansion of the chest. No use of accessory muscles. Lungs were clear to auscultation bilaterally with no crackles or wheezes. Abdominal: Normoactive bowel sounds. Abdomen was soft, nondistended, and non- tender to palpation Extremities: Upper and lower extremities are warm and well perfused. Radial and dorsalis pedis pulses were 2+ b/l. Capillary refill assessed in UE was < 3 sec. Psych: Well-developed, well-nourished, appropriately dressed for occasion. Beh avior is cooperative and appropriate. Affect is WNL. Insight is appropriate. Results & Data Results & Data ([facility]) Vital Signs (Past 12 Hours) Vital Signs Temp Pulse Resp BP Pulse Ox 02/14/21 21:01 95 H 18 127/68 02/14/21 20:31 99 H 14 116/62 100 02/14/21 20:00 101 H 16 104/62 94 02/14/21 19:54 102 H 17 111/60 96 02/14/21 18:26 95 H 21 126/80 96 02/14/21 17:13 36.6 C 116 H 18 108/69 97 Supervising Physician Co-Signing Physician Notes Attending addendum: I have physically seen this patient, have supervised the medical residents activities, and agree with the H&P unless as otherwise noted. Assessment and Plan: Acute kidney injury- Creatinine 1.94 upon admission, with baseline 0.98 Received 1 L normal saline in the ED LR at 125 mils per hour for a total of 2 liters Follow urine culture and sensitivity Hold HCTZ Enterocolitis- Profuse watery diarrhea with decreased appetite Likely responsible for prerenal state and acute kidney injury Follow stool culture and C. difficile studies Clear liquid diet, advance as tolerated Hypertension- Hold HCTZ, amlodipine and losartan due to relative dehydration Continue carvedilol with hold parameters Remaining orders and notations as noted Resident Activity Tracking Resident Involvement: Resident Care Provided Care Provided: Adult [facility]
[2021-02-14] MEDS: LACTATED RINGER'S 1,000 ML IV SCH (23:20)
[2021-02-14] MEDS ORDERED: GLUCOSE 40% GEL 15 GM TUBE PO PRN (23:23)
[2021-02-14] MEDS ORDERED: ACETAMINOPHEN 325 MG TAB PO PRN (23:23)
[2021-02-14] MEDS ORDERED: GLUCAGON FOR INJ 1 MG VIAL SQ PRN (23:23)
[2021-02-14] MEDS ORDERED: DEXTROSE 50% 50 ML SYRINGE IV PRN (23:23)
[2021-02-14] MEDS ORDERED: GLUCOSE 10 TABS/TUBE PO PRN (23:23)
[2021-02-14] MEDS ORDERED: POLYETHYLENE (MIRALAX) 17 GM PACK PO PRN (23:23)
[2021-02-14] MEDS ORDERED: ONDANSETRON INJ 2 MG/ML 2 ML VIAL IV PRN (23:23)
[2021-02-14] MEDS ORDERED: CARBOHYDRATES FOR HYPOGLYCEMIA PO PRN (23:23)
[2021-02-14] MEDS ORDERED: DC ALL PREVIOUSLY ORDERED DIABETES MEDS ONE (23:30)
[2021-02-15] MEDS: ENOXAPARIN INJ 40 MG/0.4 ML SYR SQ SCH ×3 (00:32→20:58)
[2021-02-15] MEDS: carvediloL 25 MG TAB PO SCH ×3 (01:00→20:59)
[2021-02-15] MEDS: DOXEPIN HCL 75 MG CAPSULE PO SCH ×2 (01:00→20:59)
[2021-02-15] MEDS: LEVOTHYROXINE SODIUM 75 MCG TABLET PO SCH (06:13)
[2021-02-15] MEDS: LACTATED RINGER'S 1,000 ML IV SCH ×2 (06:14→16:45)
[2021-02-15 07:57] LABS: Eosinophils # (auto) 0.33 K/uL (0-0.5); Eosinophils % (auto) 3.7 %; Hematocrit (blood only) 45.2 % (42-52); Hemoglobin 15.4 g/dL (14.0-18.0); Immature Granulocytes # (auto) 0.03 K/uL (0.00-0.02); Immature Granulocytes % (auto) 0.3 %; Lymphocytes # (auto) 2.51 K/uL (1.2-3.4); Lymphocytes % (auto) 28.5 %; Mean Corpuscular Hemoglobin 28.2 pg (25-34); Mean Corpuscular Hgb Conc 34.1 g/dL (32-36); Mean Corpuscular Volume 82.8 fL (80-100); Mean Platelet Volume 10.2 fL (7.4-10.4); Monocytes # (auto) 1.34 K/uL (0.11-0.59); Monocytes % (auto) 15.2 %; Neutrophils # (auto) 4.61 K/uL (1.4-6.5); Neutrophils % (auto) 52.3 %; Platelet Count 199 K/uL (130-400); RDW Coefficient of Variation 13.4 % (11.5-14.5); RDW Standard Deviation 39.8 fL (36.4-46.3); Red Blood Count 5.46 M/uL (4.7-6.1); White Blood Count 8.82 K/uL (4.8-10.8)
[2021-02-15 08:16] LABS: Albumin Level 3.4 gm/dl (3.4-5.0); BUN Creatinine Ratio 22.1 (10-20); Calcium 8.5 mg/dl (8.5-10.1); Creatinine Clr Calc Pharmacy 78.9 ml/min; Est GFR (African American) 61.4 ml/min; Potassium 3.6 mmol/L (3.5-5.1)
[2021-02-15 08:33] LABS: Estimated Average Glucose 140 mg/dl; Hemoglobin A1C 6.5 % (4.5-5.6)
[2021-02-15 08:46] LABS: Albumin Globulin Ratio 1.1 (0.9-2); Bilirubin,Total 0.6 mg/dl (0.2-1); Globulin 3.1 gm/dl (2.5-4.0); Total Protein 6.5 gm/dl (6.4-8.2)
[2021-02-15] MEDS: INSULIN ASPART 100 UNITS/ML 3 ML PEN SC SCH ×4 (08:50→21:16)
[2021-02-15] MEDS: POTASSIUM CHLORIDE CRTAB 20 MEQ TABCR PO SCH (09:00)
[2021-02-15] MEDS: ATORVASTATIN 20 MG TAB PO SCH (09:00)
--- NOTE | 2021-02-15 09:06 | Electrocardiogram Report ---
Test Reason : Blood Pressure : / mmHG Vent. Rate : 097 BPM Atrial Rate : 097 BPM P-R Int : 146 ms QRS Dur : 088 ms QT Int : 334 ms P-R-T Axes : 022 023 -07 degrees QTc Int : 424 ms Normal sinus rhythm Normal ECG When compared with ECG of 10-APR-2014 14:44, No significant change was found Confirmed by Viktor Choi ([id number]) on 02/15/2021 9:05:42 AM Referred By: Leida Liriano Confirmed By:Viktor Choi
--- NOTE | 2021-02-15 18:08 | Hospitalist Progress Note ---
Date of Service February 15, 2021 Assessment & Plan (1) Intractable nausea and vomiting: Plan: * Likely secondary to Covid * Nausea and vomiting has since resolved (2) Diarrhea: Plan: * Likely secondary to Covid and resolving/improving (3) Acute renal insufficiency: Plan: * Likely secondary to intractable nausea vomiting and diarrheawhich seems to be improving * Renal function slowly approaching baseline * Continue to hold nephrotoxic agents including HCTZ/lisinopril. BP acceptable without these medications for now * Continue gentle IV hydration overnight with follow-up labs in the a.m. (4) Dehydration: Plan: * See above (5) COVID-19: Plan: * Likely presenting with GI symptoms. Patient has been fully vaccinated. Fortunately he is not having any respiratory symptoms, he is not hypoxic and/or requiring supplemental oxygen. Although he has tested positive in light of being fully vaccinated, he is not severely/significantly ill likely in part from being vaccinated. * Today is day #2 from symptom onset. Discussion with patient that he should remain in quarantine for 10 days from symptom onset upon discharge. Plan: Chronic medical conditions: 1. HTNholding lisinopril/HCTZ. BP acceptable. Doxepin and carvedilol continu ed. 2. HLDLipitor continued 3. OSABiPAP use at night 4. RLS 5. Diabetes mellitus 2-we will monitor blood sugars and correct via sliding scale 6. GERD 7. Hypothyroidismcontinue Synthroid * Suspect anticipated discharge tomorrow Admission and Anticipated Discharge Date Admission Date: February 14, 2021 Subjective Continuously. He is a 42-year-old white male with past medical history of HTN, HLD, LIANNA, RLS, [id number] diabetes mellitus, and GERD. He presented to the ED yesterday with complaint GI symptoms including nausea, vomiting, and diarrhea. Lab data showed MICHELLE likely due to dehydration. BUN and creatinine were 21.9. CT of the abdomen and pelvis showed no acute intra-abdominal process. His Covid PCR test was positive. Interestingly enough, patient is fully vaccinated. Had the meningitis series completed November 2020. Patient has not had any respiratory symptoms. Denies fevers, chills, cough, shortness of breath, change in taste/smell. He has not been hypoxic or requiring any supplemental oxygen. Patient primarily hospitalized given his acute kidney injury related to dehydration from GI symptoms. Lisinopril/HCTZ have been on hold. BUN and creatinine are downtrending and currently 34 and 1.5 respectively. Patient still having diarrhea but reports his nausea and vomiting have since abated. Review of Systems Review of Systems: All systems reviewed and are unremarkable except as noted in HPI and below Positive for nausea, vomiting, diarrhea. Otherwise, denies fevers, chills, headache, nasal congestion, sore throat, cough, chest pain, shortness of breath, dysuria, hematuria, frequency, skin lesions or rashes. Physical Exam Physical Exam: General: Morbidly obese white male, resting comfortably in his hospital bed. NAD. Does not appear ill or toxic Neck: No JVD. Negative hepatojugular reflex Cardiac: Diminished without M/G/R Lungs: CTA without W/R/R Abdomen: Normoactive X4. Soft and nontender in all quadrants. Extremities: + Adiposity without true edema. No peripheral clubbing cyanosis or edema Neuro: A&O X4 cranial nerves II through XII are grossly intact no focal neuro deficits Skin: No obvious skin lesions or rashes Results & Data Results & Data ([facility]) Vital Signs (Past 12 Hours) Vital Signs Temp Pulse Resp BP Pulse Ox 02/15/21 14:44 36.5 C 90 18 128/66 94 02/15/21 08:18 36.5 C 76 17 112/79 96 Laboratory Results 02/15/21 07:04 02/15/21 07:04 PG Care Time/CCT Total # of Minutes Spent Total Time Spent with Patient: Total time spent is greater than 50% in coordina tion of care (as documented) at patient's floor/unit and/or counseling patient: C[place] [address] Subseq Hosp Care Lvl 2 Patient Type Established History Expanded Problem Focused Exam Expanded Problem Focused Medical Decision Making Moderate Complexity Diagnoses Intractable nausea and vomiting R11.2 Diarrhea R19.7 Acute renal insufficiency N28.9 Dehydration E86.0 COVID-19 U07.1
[2021-02-16] MEDS: LACTATED RINGER'S 1,000 ML IV SCH (00:33)
[2021-02-16] MEDS: LEVOTHYROXINE SODIUM 75 MCG TABLET PO SCH (06:15)
[2021-02-16 07:37] LABS: Basophils # (auto) 0.01 K/uL (0-0.2); Basophils % (auto) 0.1 %; Eosinophils # (auto) 0.39 K/uL (0-0.5); Eosinophils % (auto) 5.8 %; Hematocrit (blood only) 44.7 % (42-52); Hemoglobin 15.3 g/dL (14.0-18.0); Immature Granulocytes # (auto) 0.06 K/uL (0.00-0.02); Immature Granulocytes % (auto) 0.9 %; Lymphocytes # (auto) 1.62 K/uL (1.2-3.4); Mean Corpuscular Hemoglobin 28.2 pg (25-34); Mean Corpuscular Hgb Conc 34.2 g/dL (32-36); Mean Corpuscular Volume 82.5 fL (80-100); Mean Platelet Volume 9.8 fL (7.4-10.4); Monocytes # (auto) 0.97 K/uL (0.11-0.59); Monocytes % (auto) 14.4 %; Neutrophils # (auto) 3.69 K/uL (1.4-6.5); Neutrophils % (auto) 54.8 %; Platelet Count 176 K/uL (130-400); RDW Coefficient of Variation 13.1 % (11.5-14.5); RDW Standard Deviation 39.1 fL (36.4-46.3); Red Blood Count 5.42 M/uL (4.7-6.1); White Blood Count 6.74 K/uL (4.8-10.8)
[2021-02-16 07:55] LABS: Albumin Level 3.4 gm/dl (3.4-5.0); BUN Creatinine Ratio 18.5 (10-20); Calcium 8.6 mg/dl (8.5-10.1); Creatinine Clr Calc Pharmacy 137.2 ml/min; Est GFR (African American) 117.7 ml/min; Est GFR (Non-African American) 101.6 ml/min; Magnesium 2.2 mg/dl (1.8-2.4); Potassium 3.5 mmol/L (3.5-5.1)
[2021-02-16 08:04] LABS: Bilirubin,Total 0.5 mg/dl (0.2-1); Globulin 3.3 gm/dl (2.5-4.0); Total Protein 6.7 gm/dl (6.4-8.2)
[2021-02-16 08:49] VITALS: BP 125/85; PULSE 94; TEMP 97.7; O2SAT 95
[2021-02-16] MEDS: POTASSIUM CHLORIDE CRTAB 20 MEQ TABCR PO SCH (09:58)
[2021-02-16] MEDS: carvediloL 25 MG TAB PO SCH (09:58)
[2021-02-16] MEDS: ATORVASTATIN 20 MG TAB PO SCH (10:14)
[2021-02-16] MEDS: ENOXAPARIN INJ 40 MG/0.4 ML SYR SQ SCH (10:15)
[2021-02-16] MEDS: INSULIN ASPART 100 UNITS/ML 3 ML PEN SC SCH (10:26)
--- NOTE | 2021-02-16 13:15 | Discharge Summary ---
Date of Service February 16, 2021 Admission HPI Per Admitting Provider Arturo is a 50 year old male with a notable history of obstructive sleep apnea, restless leg syndrome, BPH, hypothyroidism, hypertension, fatty liver, type 2 diabetes who presented to [facility] for evaluation of GI distress over the last several days. Patient reports that beginning approximately 2 days ago, he began having profuse watery stools that were also accompanied with nausea and occasional vomiting. This began the night after he ate a owen he brought home from [place]. Because of this, he has been unable to keep food or liquids down without reemergence of the nausea. He denies any dark or discolored stools. Denies any hematemesis. He does endorse several episodes of positionally-related presyncope and one episode of actual syncope that occurred as he was getting out of bed in the middle of the night to use the commode. He did not experience any chest pain during these episodes. He denied these ever happening beforehand. In [place], he does endorse swimming in fresh water and eating raw oysters. No new rashes/joint pains. Socially- does endorse using chew-tobacco. Precontemplative. Denies alcohol, recreational drug use. 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 In the ER, patient was found to be mildly tachycardic, with normal blood pressures. He did have a very mild leukocytosis in the setting of hemoconcentration, as well as evidence of an acute kidney injury. His COVID-19 PCR test did result positive. He denies any respiratory or chest symptoms. CT of the abdomen pelvis was largely unremarkable. Chest x-ray did not reveal any acute findings. Patient was resuscitated with approximately 1 L of fluids was also given IV Pepcid. Decision was made to admit patient for ongoing GI distress in the setting of dehydration, need for further volume resuscitation. Admission Exam Per Admitting Provider General: Tired but well-appearing 50-year-old gentleman who is lying back in his hospital bed, relaxed and watching TV upon my arrival. He converses freely and is in no acute distress. HEENT: NCAT. Eyes - Sclera are white, anicteric, and without injection. PERRL. EOMs display full ROM bilaterally. Mouth -mucous membranes are dry appearing. Cardiac: Normal rate and regular rhythm; S1 and S2 present with no murmurs, rubs, or gallops. Pulmonary: Good respiratory effort with symmetric expansion of the chest. No use of accessory muscles. Lungs were clear to auscultation bilaterally with no crackles or wheezes. Abdominal: Normoactive bowel sounds. Abdomen was soft, nondistended, and non- tender to palpation Extremities: Upper and lower extremities are warm and well perfused. Radial and dorsalis pedis pulses were 2+ b/l. Capillary refill assessed in UE was < 3 sec. Psych: Well-developed, well-nourished, appropriately dressed for occasion. Behavior is cooperative and appropriate. Affect is WNL. Insight is appropriate. Principal Diagnosis Working diagnoses: 1. Acute COVID-19 2. Intractable N/V/Dsecondary to #1 3. Dehydration with AKIsecondary to #1--resolved 3. Coughlikely secondary to #1 Chronic medical conditions: 1. HTN 2. HLD 3. LIANNA 4. RLS 5. Diabetes mellitustype II 6. GERD 7. Morbid obesity Discharge Exam General: Morbidly obese white male, resting comfortably in his hospital bed. NAD. Does not appear ill or toxic Neck: No JVD. Negative hepatojugular reflex Cardiac: Diminished without M/G/R Lungs: CTA without W/R/R Abdomen: Normoactive X4. Soft and nontender in all quadrants. Extremities: + Adiposity without true edema. No peripheral clubbing cyanosis or edema Neuro: A&O X4 cranial nerves II through XII are grossly intact no focal neuro deficits Skin: No obvious skin lesions or rashes Discharge Data Allergies Allergy/AdvReac Type Severity Reaction Status Date / Time LINUS Inhibitors Allergy Unknown Unknown Verified 02/14/21 21:17 Penicillins Allergy Unknown UNKNOWN Verified 02/14/21 21:17 Consultations 02/14/21 20:59 ED Decision to Admit Stat CT of the abdomen and pelvis: Cholelithiasis without acute infectious process Ordered Studies 02/14/21 18:58 CT abd pelvis wo con Stat IMPRESSION: 1. There are no acute infectious or inflammatory findings in the abdomen or pelvis. 2. Cholelithiasis. 3. Hepatomegaly and hepatic steatosis. 4. Additional findings as above 02/14/2021: CXRno acute cardiopulmonary process Hospital Course (1) Intractable nausea and vomiting: * Likely secondary to Covid * Nausea and vomiting has since resolved (2) Diarrhea: * Likely secondary to Covid-resolved (3) Cough: -Patient received gentle IV hydration in the overnight hours. No clinical evidence to suggest pulmonary vascular congestion. Suspect related to Covid -Patient is not hypoxic or complaining of shortness of breath -Symptoms from Covid seem primarily GI and improved; however, he has developed a cough and is on day #4 of symptomatology. -Given his morbid obesity and OSAI am concerned for progressive respiratory symptoms (especially around days 10 through 12). Considered addition of Decadron for antiinflammatory effects; however, given his DM and recent MICHELLE-- attending advises against this. -Patient to return to the ED if symptoms get worse/he develops CP and/or SOB (4) Acute renal insufficiency: * Likely secondary to intractable nausea vomiting and diarrhearesolved and baseline with IVF and withholding nephrotoxic meds * May resume lisinopril tomorrow. Attending advises withholding HCTZ for duration of illness. (5) Dehydration: * See above (6) COVID-19: * Likely presenting with GI symptoms. Patient has been fully vaccinated. He has since developed a cough but is NOT hypoxic or SOB. Although he has tested positive in light of being fully vaccinated, he is not severely/significantly ill likely in part from being vaccinated. * Today is day #4 from symptom onset. Discussion with patient that he should remain in quarantine for 10 days from symptom onset upon discharge. (7) Cholelithiasis: -asymptomatic. N/V upfront resolved and likely from COVID. Since symptoms resolved, did not pursue RUQ US. If symptoms return, would obtain an US- can be facilitated as an OP even Plan of care D/W Dr. Laughlin and changes made per his recommendations as outlined above. Total Time Total Time Spent Total Time Spent (In Minutes): 30 Discharge Plan Discharge Items Patient Disposition: Home - Self-Care Reason For Visit: ENTERITIS, COVID19+ Discharge Diagnosis: 1. Acute Covid-19 2. Intractable N/V/D- resolved. Likely secondary to #1 3. Cough- likely related to #1 4. Dehydration/Acute Kidney Injury- resolved and secondary to #2 Activity: As commented below Activity Comment: Quarantine through 02/22/21 Non-emergency contact: Primary Care Provider Call non-emergency contact if: you have any medication questions and your symptoms worsen Follow-up/Referrals: Leida Liriano, [Primary Care Provider] - Diet: Carb Consistent or DM2 and Heart Healthy Addtl Attending Provider Instructions: - recommend continued supportive care for Covid infection - given the development of a cough, I have prescribed Tessalon perles to use as needed - If you develop trouble breathing, persistent fevers, chest pain -->return to the ED!!! - Quarantine through 02/23/12 (10 days from symptom onset) - May resume lisinopril tomorrow. Continue to hold HCTZ x1 week Pending Studies at Discharge: No Stand-Alone Forms: My [facility] Medications and DC Order Prescriptions: New benzonatate [Tessalon Perles] 100 mg capsule 100 mg PO BID PRN (Reason: cough) Qty: 30 RF: 0 Continued levothyroxine 75 mcg tablet 75 mcg PO QAM Qty: 90 RF: 1 amlodipine 5 mg tablet 5 mg PO QAM Qty: 90 RF: 1 carvedilol 25 mg tablet 25 mg PO BID Qty: 180 RF: 1 potassium chloride 20 mEq tablet extended release 20 meq PO QAM Qty: 180 RF: 1 metformin 1,000 mg tablet 1,000 mg PO BID Qty: 180 RF: 1 lisinopril 40 mg tablet 40 mg PO QAM Qty: 90 RF: 1 doxepin 50 mg capsule 150 mg PO HS Qty: 90 RF: 5 Jardiance 25 mg tablet 25 mg PO QAM RF: 0 meloxicam 15 mg tablet 15 mg PO QAM PRN (Reason: Pain) RF: 0 Discontinued hydrochlorothiazide 25 mg tablet 25 mg PO QAM Qty: 90 RF: 1 No Action atorvastatin 20 mg tablet 20 mg PO QAM Qty: 90 RF: 1 Discharge Orders: Discharge Order (Routine); Ordered 02/16/21 Ordered By: Pippa Charles/Other Patient Handouts: A1C, COVID-19 Home Care, Managing Type 2 Diabetes Admission Data Admit Date/Time: 02/14/21 22:31 Attending Provider: Nelson Laughlin Admit Provider: Kike Burk Primary Care Provider: Leida Liriano Other Providers: Torsten Marroquin Other Interventions: Discharge Summary Assessment (RN) Last Done: 02/16/21 11:12 Supervising Physician Co-Signing Physician Notes I personally saw and examined the patient. I verified all wei points and agree with Lurdes Montano PA-C with the following exceptions and/or additions: None [place] [address] OBS Care - Discharge Patient Type Established Diagnoses Intractable nausea and vomiting R11.2 Diarrhea R19.7 Acute renal insufficiency N28.9 Dehydration E86.0 COVID-19 U07.1 Cough R05 Cholelithiasis K80.20 Time Spent (min) 30
--- NOTE | 2021-02-19 05:31 | Billing Data ---
Date of Service February 19, 2021 Coding Level of Care Code 60634 Initial Inpt Care Lvl 3
== END 2021-02-16 14:05 | disposition home or self-care (01) ==
LOC: ED 16:57 → 3N 16:57 → SUATTDRO 22:31 → 3N 22:59